=== PATIENT | male | born 1945 | race Caucasian/White ===

== ENCOUNTER 2022-07-16 11:20 | Emergency (ER) | payer MEDICARE, OTHER ==
[~2022-07-16] VITALS: Ht 175.3 cm; Wt 87.1 kg
[~2022-07-16 11:20] MED LIST: ASPIRIN81 MG PO; CLOPIDOGREL75 MG PO; CRESTOR20 MG PO; PRAVASTATIN SOD40 MG PO; SYNTHROID88 MCG PO; TOPROL XL100 MG PO; VENTOLIN HFA18 GM INH
[2022-07-16] MEDS ORDERED: CEPHALEXIN500 M1 PO (13:17)
== END 2022-07-16 13:37 | disposition home or self-care (01) ==
LOC: ED 11:20
DX: S61.012A Laceration without foreign body of left thumb without damage to nail, initial encounter (principal); F17.200 Nicotine dependence, unspecified, uncomplicated; W27.0XXA Contact with workbench tool, initial encounter; Z95.1 Presence of aortocoronary bypass graft; Z95.5 Presence of coronary angioplasty implant and graft; Z79.82 Long term (current) use of aspirin; Z79.899 Other long term (current) drug therapy; Z23 Encounter for immunization
CPT/HCPCS: 90715; A9270